=== PATIENT | male | born 1945 | race Caucasian/White ===

== ENCOUNTER → 2017-02-06 | Day surgery (SDC) | payer OTHER, BC ==
[~2017-02-06] MED LIST: ASPI-482 PO; ATEN25TA; ATORVASTATIN CA80 MG PO; HYDROmorphone 2 MG/ML VIAL IV PRN; IV RINGERS,LACTATED 1000ML 1,000 ML IV ONE; IV RINGERS,LACTATED 1000ML 1,000 ML IV SCH; LIDOCAINE 1% PF 2 ML VIAL. ID PRN; LIDOCAINE 2% PF Vial for OR 5 ML VIAL. ONE; LISI-334; LOSA25TA4 PO; MORPHINE SULFATE 2 MG/ML DISP.SYRIN. IV PRN; OMEG1CAP6 PO; OMEP40CA5; ONDANSETRON PF 4 MG/2 ML VIAL. IV PRN; PRAV80TA2; PROCHLORPERAZINE 10 MG/2 ML VIAL. IV PRN; PROPOFOL 40 ML IV ONE; fentaNYL PF VIAL 100 MCG/2 ML VIAL IV PRN
[2017-02-06 13:55] VITALS: BP 140/74
--- NOTE | 2017-02-06 20:03 | CONS ---
DATE OF CONSULTATION: 02/06/2017 REFERRING PHYSICIAN: ____ HISTORY OF PRESENT ILLNESS: A 71-year-old male whose past medical history is significant for organic heart disease, status post stents, hyperlipidemia, hypertension, is seen for surveillance colonoscopy. He had colon polyps on first exam and then clean on the second and occasional bleeding, but no change in bowel habits, no change in weight or appetite. Last colon exam was over 5 years ago. He is otherwise without additional complaints. PAST MEDICAL HISTORY: Organic heart disease, hypertension, hyperlipidemia, status post cardiac stenting. ALLERGIES: None. MEDICATIONS: Include aspirin, atorvastatin, losartan, omega-3 fatty acids, omeprazole 40 mg daily. SOCIAL HISTORY: Former smoker, does not drink. FAMILY HISTORY: Noncontributory. REVIEW OF SYSTEMS: Per records. PHYSICAL EXAMINATION: GENERAL: Reveals a well-nourished, well-developed male. VITAL SIGNS: Temperature is 97.9, pulse ____, respiratory rate is 22. HEENT: Normocephalic and atraumatic head. Pupils and extraocular muscles not tested. Sclerae anicteric. NECK: Supple. LUNGS: Clear. CARDIOVASCULAR: Reveals S1, S2 without S3, S4 or appreciable murmur. ABDOMEN: Reveals soft abdomen, normal bowel sounds, without appreciable hepatosplenomegaly. EXTREMITIES: Reveals no cyanosis, clubbing or edema. IMPRESSION: Colorectal screening. History of polyps is warranted at this time. Risks and benefits have been discussed with the patient. He is willing to proceed. DIEGO JIMENEZ MD DR: KATHARINA/simon JOB#: [id number] / [id number] ecc Records, Medical
== END | disposition home or self-care (01) ==
LOC: ENDOS 11:28
PROVIDERS: ATTEND Internal Medicine Gastroenterology
DX: Z09 Encounter for follow-up examination after completed treatment for conditions other than malignant neoplasm (principal); Z86.010 Personal history of colon polyps; K64.0 First degree hemorrhoids; E78.00 Pure hypercholesterolemia, unspecified; I10 Essential (primary) hypertension; K21.9 Gastro-esophageal reflux disease without esophagitis; F17.200 Nicotine dependence, unspecified, uncomplicated
CPT/HCPCS: 45378; J2704; J2001